=== PATIENT | male | born 1950 | race Caucasian/White ===

== ENCOUNTER 2019-04-18 16:57 | Emergency (ER) | payer MEDICARE ==
[~2019-04-18] VITALS: Ht 180.3 cm; Wt 88.9 kg
[2019-04-18 20:53] LABS: BASOPHILS % (AUTO) 0.1 % (0-1); EOSINOPHILS # (AUTO) 0.1 X10'3 (0-0.9); EOSINOPHILS % (AUTO) 2.1 % (0-6); HEMATOCRIT 47.1 % (42.0-52.0); HEMOGLOBIN 16.3 g/dl (14.0-17.9); LYMPHOCYTES # (AUTO) 1.3 X10'3 (1.1-4.8); LYMPHOCYTES % (AUTO) 19.3 % (21-51); MEAN CORPUSCULAR HEMOGLOBIN 32.5 PG (27.0-31.0); MEAN CORPUSCULAR HGB CONC 34.6 g/dL (33.0-36.5); MEAN CORPUSCULAR VOLUME 93.8 FL (78-98); MEAN PLATELET VOLUME 7.9 FL (7.4-10.4); MONOCYTES # (AUTO) 0.5 X10'3 (0-0.9); MONOCYTES % (AUTO) 7.6 % (2-12); NEUTROPHILS # (AUTO) 4.7 X10'3 (1.8-7.7); NEUTROPHILS % (AUTO) 70.9 % (42-75); PLATELET COUNT 285 X10'3 (140-440); RED BLOOD COUNT 5.02 X10'6 (4.70-6.10); WHITE BLOOD COUNT 6.6 X10'3 (4.5-11.0)
[2019-04-18 21:02] LABS: ANION GAP 5 (8-16); CHLORIDE 102 MMOL/L (99-107); CREATININE 1.29 MG/DL (0.60-1.10); POTASSIUM 4.3 MMOL/L (3.5-5.1); SODIUM 137 MMOL/L (135-145); TOTAL CARBON DIOXIDE 29.8 MMOL/L (24-32); eGFR 55 ML/MIN
[2019-04-18 21:03] LABS: ALANINE AMINOTRANSFERASE 26 U/L (12-78); ALBUMIN 4.1 G/DL (3.4-5.0); ALKALINE PHOSPHATASE 77 IU/L (46-116); CALCIUM 9.2 MG/DL (8.5-10.1)
[2019-04-18 21:10] LABS: MAGNESIUM 2.3 MG/DL (1.5-2.4); TROPONIN I 0.07 NG/ML (0.0-0.05)
[2019-04-18 21:26] LABS: ASPARTATE AMINO TRANSFERASE 26 U/L (10-37)
[2019-04-18] MEDS ORDERED: AMOX-422 PO (21:31)
[2019-04-18 21:38] LABS: BILIRUBIN,TOTAL 0.8 MG/DL (0.1-1.0); BLOOD UREA NITROGEN 25 MG/DL (7-18); BUN/CREATININE RATIO 19.4 (5.4-32.0); GLUCOSE 86 MG/DL (70-104); PHOSPHORUS 3.3 MG/DL (2.3-4.5); TOTAL PROTEIN 8.4 G/DL (6.4-8.2)
--- NOTE | 2019-04-18 21:49 | NUR ---
EKG AT BEDSIDE
[2019-04-18 22:06] VITALS: BP 137/83
== END 2019-04-18 22:08 | disposition home or self-care (01) ==
LOC: ER 17:00
DX: J32.9 Chronic sinusitis, unspecified (principal); Z86.73 Personal history of transient ischemic attack (TIA), and cerebral infarction without residual deficits; Z79.2 Long term (current) use of antibiotics
CPT/HCPCS: 36415; 80053; 83735; 84100; 84443; 84484; 85025; 93005; 99284

== ENCOUNTER 2019-08-01 10:30 | Day surgery (SDC) | payer MEDICARE ==
[2019-08-01] VITALS (8 sets, daily range): BP systolic 91–120; BP diastolic 57–74
[~2019-08-01] VITALS: Ht 180.3 cm; Wt 90.6 kg
[2019-08-01] MEDS ORDERED: normal saline 1000ml 1,000 ML IV SCH ×2 (11:05→15:15)
[2019-08-01] MEDS ORDERED: LISI-604 PO (11:15)
[2019-08-01] MEDS ORDERED: AMIO200T27 PO (11:15)
[2019-08-01] MEDS ORDERED: IBUP-2697 PO (11:15)
[2019-08-01] MEDS ORDERED: APIX5TAB3 PO (11:15)
[2019-08-01] MEDS ORDERED: METO25TA6 PO (11:15)
[2019-08-01 11:51] LABS: BASOPHILS % (AUTO) 0.3 % (0-1); EOSINOPHILS # (AUTO) 0.1 X10'3 (0-0.9); EOSINOPHILS % (AUTO) 1.5 % (0-6); HEMATOCRIT 41.1 % (42.0-52.0); HEMOGLOBIN 13.9 g/dl (14.0-17.9); LYMPHOCYTES # (AUTO) 0.8 X10'3 (1.1-4.8); LYMPHOCYTES % (AUTO) 17.2 % (21-51); MEAN CORPUSCULAR HEMOGLOBIN 32.3 PG (27.0-31.0); MEAN CORPUSCULAR VOLUME 95.2 FL (78-98); MEAN PLATELET VOLUME 8.5 FL (7.4-10.4); MONOCYTES # (AUTO) 0.4 X10'3 (0-0.9); MONOCYTES % (AUTO) 7.8 % (2-12); NEUTROPHILS # (AUTO) 3.5 X10'3 (1.8-7.7); NEUTROPHILS % (AUTO) 73.2 % (42-75); PLATELET COUNT 227 X10'3 (140-440); RED BLOOD COUNT 4.32 X10'6 (4.70-6.10); RED CELL DISTRIBUTION WIDTH 14.7 % (11.5-14.5); WHITE BLOOD COUNT 4.8 X10'3 (4.5-11.0)
[2019-08-01 12:00] LABS: ALBUMIN 3.4 G/DL (3.4-5.0); ANION GAP 5 (8-16); BLOOD UREA NITROGEN 28 MG/DL (7-18); BUN/CREATININE RATIO 17.5 (5.4-32.0); CALCIUM 8.9 MG/DL (8.5-10.1); CHLORIDE 107 MMOL/L (99-107); MAGNESIUM 2.1 MG/DL (1.5-2.4); POTASSIUM 4.2 MMOL/L (3.5-5.1); SODIUM 138 MMOL/L (135-145); TOTAL CARBON DIOXIDE 25.9 MMOL/L (24-32); eGFR 43 ML/MIN
[2019-08-01 12:01] LABS: GLUCOSE 89 MG/DL (70-104)
[2019-08-01] MEDS ORDERED: midazolam 2 mg/2 ml injection ONE ×4 (12:01→14:31)
[2019-08-01] MEDS ORDERED: ceFAZolin 1000mg inj ONE (12:01)
[2019-08-01] MEDS ORDERED: proCHLORperazine 10 MG/2 ml inj ONE (12:01)
[2019-08-01] MEDS ORDERED: fentaNYL/PF 50MCG/1 ML 2ML syringe ONE ×4 (12:02→14:31)
[2019-08-01] MEDS ORDERED: vancomycin 1,000mg inj ONE (12:03)
[2019-08-01] MEDS ORDERED: LIDOcaine 1% W/epiNEPHrine 1:100,000 20ml vial ONE (12:04)
[2019-08-01] MEDS ORDERED: iohexol 350MG/ML 100ml bottle IV ONE (12:32)
[2019-08-01] MEDS ORDERED: iohexol 350 MG/ML 50ML vial IV ONE (12:43)
[2019-08-01] MEDS ORDERED: LIDOcaine 2% 10ml TOPICAL JELLY (Urojet) ONE (12:56)
[2019-08-01] MEDS ORDERED: Thrombin (Bovine) 5,000 unit vial TP ONE (14:25)
[2019-08-01] MEDS ORDERED: proCHLORperazine 10 MG/2 ml inj IV PRN (18:00)
[2019-08-01] MEDS ORDERED: ondansetron/PF 4mg/2ml inj IV PRN (18:00)
== END 2019-08-01 18:10 | disposition home or self-care (01) ==
LOC: MED 3N 10:30 → U 10:30
PROVIDERS: ATTEND Internal Medicine Cardiovascular Disease
DX: I47.2 Ventricular tachycardia (principal); I49.5 Sick sinus syndrome; K21.9 Gastro-esophageal reflux disease without esophagitis; I42.9 Cardiomyopathy, unspecified; Z98.890 Other specified postprocedural states; Z72.89 Other problems related to lifestyle; Z79.899 Other long term (current) drug therapy
CPT/HCPCS: 33225; 33233; 33235; 33249; 36415; 71045; 80048; 83735; 85025; 85610; 93005; 99152; 99153; C1769; C1882; C1887; C1894; C1895; C1900; J0690; J0780; J2250; J2405; J3010; J3370; J7030; Q9967; A4565; A4620; A6258

== ENCOUNTER 2020-10-24 14:50 | Day surgery (SDC) | payer MEDICARE ==
[~2020-10-24] VITALS: Ht 180.3 cm; Wt 89.1 kg
[2020-10-24] VITALS (9 sets, daily range): BP systolic 125–142; BP diastolic 74–90
[~2020-10-24 14:50] MED LIST: AMIO200T27 PO; APIX5TAB3 PO; IBUP-2697 PO; LISI-790 PO; LOP25T PO
[2020-10-24] MEDS ORDERED: diphenhydrAMINE 25mg capsule PO PRN (15:15)
[2020-10-24] MEDS ORDERED: normal saline 1,000 ML IV SCH (15:15)
[2020-10-24] MEDS ORDERED: LOP25T PO (15:22)
[2020-10-24 15:46] LABS: BASOPHILS % (AUTO) 0.3 % (0-1); EOSINOPHILS # (AUTO) 0.2 X10'3 (0-0.9); HEMATOCRIT 41.9 % (42.0-52.0); HEMOGLOBIN 14.5 g/dl (14.0-17.9); LYMPHOCYTES # (AUTO) 1.3 X10'3 (1.1-4.8); LYMPHOCYTES % (AUTO) 26.4 % (21-51); MEAN CORPUSCULAR HEMOGLOBIN 32.4 PG (27.0-31.0); MEAN CORPUSCULAR HGB CONC 34.8 g/dL (33.0-36.5); MEAN CORPUSCULAR VOLUME 93.1 FL (78-98); MEAN PLATELET VOLUME 7.8 FL (7.4-10.4); MONOCYTES # (AUTO) 0.4 X10'3 (0-0.9); MONOCYTES % (AUTO) 7.4 % (2-12); NEUTROPHILS # (AUTO) 3.2 X10'3 (1.8-7.7); NEUTROPHILS % (AUTO) 61.9 % (42-75); PLATELET COUNT 200 X10'3 (140-440); RED CELL DISTRIBUTION WIDTH 13.9 % (11.5-14.5); WHITE BLOOD COUNT 5.1 X10'3 (4.5-11.0)
[2020-10-24 15:58] LABS: ALBUMIN 3.6 G/DL (3.4-5.0); ANION GAP 8 (8-16); BLOOD UREA NITROGEN 31 MG/DL (7-18); BUN/CREATININE RATIO 24.2 (5.4-32.0); CALCIUM 8.6 MG/DL (8.5-10.1); CHLORIDE 106 MMOL/L (99-107); CREATININE 1.28 MG/DL (0.60-1.10); GLUCOSE 95 MG/DL (70-104); POTASSIUM 4.1 MMOL/L (3.5-5.1); SODIUM 140 MMOL/L (135-145); TOTAL CARBON DIOXIDE 25.6 MMOL/L (24-32); eGFR 56 ML/MIN
[2020-10-24] MEDS ORDERED: LIDOcaine 1% (10mg/ml)w/preservative injection 20ml MDV ONE (16:13)
[2020-10-24] MEDS ORDERED: fentaNYL/PF 50MCG/1 ML 2ML syringe ONE (16:13)
[2020-10-24] MEDS ORDERED: iohexol 350 MG/ML 50ML vial IV ONE (16:13)
[2020-10-24] MEDS ORDERED: iohexol 350MG/ML 100ml bottle IV ONE (16:13)
[2020-10-24] MEDS ORDERED: heparin 1,000unit/ml 10ml vial 10 ML ONE (16:13)
[2020-10-24] MEDS ORDERED: midazolam 1 mg/ML 2ml injection ONE ×3 (16:13→17:11)
[2020-10-24] MEDS ORDERED: proCHLORperazine 10 MG/2 ml inj IV PRN (18:15)
[2020-10-24] MEDS ORDERED: normal saline 1000ml 1,000 ML IV SCH (18:15)
[2020-10-24] MEDS ORDERED: HYDROcodone/acetaminophen 5mg/325mg tablet PO PRN (18:15)
[2020-10-24] MEDS ORDERED: acetaminophen 325mg tablet PO PRN (18:15)
[2020-10-24] MEDS ORDERED: ondansetron/PF 4mg/2ml inj IV PRN (18:15)
[2020-10-24] MEDS ORDERED: HYDROcodone/acetaminophen 10/325mg tab PO PRN (18:15)
== END 2020-10-24 19:55 | disposition home or self-care (01) ==
LOC: SSTAY O 14:50
PROVIDERS: ATTEND Internal Medicine Cardiovascular Disease
DX: I47.2 Ventricular tachycardia (principal); I42.9 Cardiomyopathy, unspecified; I49.01 Ventricular fibrillation; K21.9 Gastro-esophageal reflux disease without esophagitis; Z79.899 Other long term (current) drug therapy; Z79.01 Long term (current) use of anticoagulants; Z95.0 Presence of cardiac pacemaker; Z98.890 Other specified postprocedural states; Z72.89 Other problems related to lifestyle; Z82.49 Family history of ischemic heart disease and other diseases of the circulatory system; Z81.8 Family history of other mental and behavioral disorders
CPT/HCPCS: 36415; 80048; 83735; 85025; 85610; 93005; 93458; 99152; C1760; C1769; C1894; J1644; J2001; J2250; J3010; J7030; Q0163; Q9967; 99153; A4620; A6258

== ENCOUNTER 2021-10-31 12:14 | Emergency (ER) | payer MEDICARE ==
[~2021-10-31] VITALS: Ht 180.3 cm; Wt 88.6 kg
[~2021-10-31 12:14] MED LIST changes: -AMIO200T27 PO; -APIX5TAB3 PO; -IBUP-2697 PO; -LISI-790 PO
[2021-10-31] MEDS ORDERED: adenosine 3mg/ml 2ml vial IV ONE (12:25)
[2021-10-31] MEDS ORDERED: aspirin 81mg tab.chew PO ONE (12:25)
[2021-10-31 12:47] LABS: BASOPHILS % (AUTO) 0.2 % (0-1); EOSINOPHILS # (AUTO) 0.2 X10'3 (0-0.9); HEMATOCRIT 44.7 % (42.0-52.0); HEMOGLOBIN 15.5 g/dl (14.0-17.9); LYMPHOCYTES # (AUTO) 1.5 X10'3 (1.1-4.8); MEAN CORPUSCULAR HEMOGLOBIN 32.9 PG (27.0-31.0); MEAN CORPUSCULAR HGB CONC 34.8 g/dL (33.0-36.5); MEAN CORPUSCULAR VOLUME 94.5 FL (78-98); MEAN PLATELET VOLUME 8.5 FL (7.4-10.4); MONOCYTES # (AUTO) 0.5 X10'3 (0-0.9); NEUTROPHILS # (AUTO) 4.5 X10'3 (1.8-7.7); NEUTROPHILS % (AUTO) 66.8 % (42-75); PLATELET COUNT 249 X10'3 (140-440); RED BLOOD COUNT 4.73 X10'6 (4.70-6.10); RED CELL DISTRIBUTION WIDTH 13.8 % (11.5-14.5); WHITE BLOOD COUNT 6.7 X10'3 (4.5-11.0)
[2021-10-31 13:07] LABS: ALANINE AMINOTRANSFERASE 27 U/L (12-78); ALKALINE PHOSPHATASE 68 IU/L (46-116); ANION GAP 7 (8-16); BLOOD UREA NITROGEN 44 MG/DL (7-18); BUN/CREATININE RATIO 30.3 (5.4-32.0); CALCIUM 8.6 MG/DL (8.5-10.1); CHLORIDE 103 MMOL/L (99-107); CREATININE 1.45 MG/DL (0.60-1.10); MAGNESIUM 2.2 MG/DL (1.5-2.4); POTASSIUM 4.6 MMOL/L (3.5-5.1); SODIUM 137 MMOL/L (135-145); TOTAL CARBON DIOXIDE 27.4 MMOL/L (24-32); eGFR 48 ML/MIN
[2021-10-31 13:15] LABS: ASPARTATE AMINO TRANSFERASE 21 U/L (10-37)
[2021-10-31 13:18] LABS: BILIRUBIN,TOTAL 0.7 MG/DL (0.1-1.0); GLUCOSE 112 MG/DL (70-104); TOTAL PROTEIN 8.2 G/DL (6.4-8.2)
[2021-10-31] MEDS ORDERED: amiodarone 200mg tablet PO ONE (14:15)
[2021-10-31] MEDS ORDERED: amiodarone 150mg/dext, iso-os 100 ML IV ONE (14:15)
--- NOTE | 2021-10-31 14:46 | NUR ---
Pt connected saranya site monitor for fcurther observation, pt awaiting to have pacemaker tested.
--- NOTE | 2021-10-31 15:29 | NUR ---
Pt started on amioderone drip, [employer] personnel at bedside.
[2021-10-31] MEDS ORDERED: AMIO200T27 PO (15:48)
--- NOTE | 2021-10-31 15:48 | NUR ---
Dr Henning made aware of pt's elevated troponin.
--- NOTE | 2021-10-31 16:31 | NUR ---
Pt d/c home via ambulatory in good condition, instructions given, pt verbalized understanding.
[2021-10-31 16:34] VITALS: BP 102/63
== END 2021-10-31 16:35 | disposition home or self-care (01) ==
LOC: ER 12:15
DX: I47.2 Ventricular tachycardia (principal)
CPT/HCPCS: 36415; 71045; 80053; 83735; 83880; 84484; 85025; 93005; 96374; 99285; J0282

== ENCOUNTER 2021-11-05 18:53 | Inpatient (IN) | payer MEDICARE ==
[~2021-11-05] VITALS: Ht 180.3 cm; Wt 92.6 kg
[~2021-11-05 18:53] MED LIST changes: +AMIO200T27 PO
[2021-11-05 19:40] LABS: BASOPHILS # (AUTO) 0.1 X10'3 (0-0.2); BASOPHILS % (AUTO) 0.9 % (0-1); EOSINOPHILS # (AUTO) 0.1 X10'3 (0-0.9); EOSINOPHILS % (AUTO) 1.2 % (0-6); HEMATOCRIT 42.2 % (42.0-52.0); HEMOGLOBIN 14.6 g/dl (14.0-17.9); LYMPHOCYTES # (AUTO) 0.5 X10'3 (1.1-4.8); LYMPHOCYTES % (AUTO) 5.7 % (21-51); MEAN CORPUSCULAR HEMOGLOBIN 32.7 PG (27.0-31.0); MEAN CORPUSCULAR HGB CONC 34.6 g/dL (33.0-36.5); MEAN CORPUSCULAR VOLUME 94.7 FL (78-98); MONOCYTES # (AUTO) 0.5 X10'3 (0-0.9); NEUTROPHILS # (AUTO) 7.3 X10'3 (1.8-7.7); NEUTROPHILS % (AUTO) 86.2 % (42-75); PLATELET COUNT 212 X10'3 (140-440); RED BLOOD COUNT 4.46 X10'6 (4.70-6.10); RED CELL DISTRIBUTION WIDTH 13.9 % (11.5-14.5); WHITE BLOOD COUNT 8.4 X10'3 (4.5-11.0)
[2021-11-05 19:53] LABS: ALANINE AMINOTRANSFERASE 249 U/L (12-78); ALBUMIN 3.8 G/DL (3.4-5.0); ALKALINE PHOSPHATASE 126 IU/L (46-116); ANION GAP 7 (8-16); BLOOD UREA NITROGEN 35 MG/DL (7-18); BUN/CREATININE RATIO 20.3 (5.4-32.0); CHLORIDE 100 MMOL/L (99-107); CREATININE 1.72 MG/DL (0.60-1.10); POTASSIUM 4.2 MMOL/L (3.5-5.1); SODIUM 135 MMOL/L (135-145); TOTAL CARBON DIOXIDE 28.4 MMOL/L (24-32); eGFR 39 ML/MIN
[2021-11-05 20:01] LABS: ASPARTATE AMINO TRANSFERASE 154 U/L (10-37); BILIRUBIN,TOTAL 5.4 MG/DL (0.1-1.0); CALCIUM 8.8 MG/DL (8.5-10.1); GLUCOSE 121 MG/DL (70-104); LIPASE 1056 U/L (73-393); TOTAL PROTEIN 7.6 G/DL (6.4-8.2)
[2021-11-05 22:34] LABS: CLARITY,URINE CLEAR (Clear); GLUCOSE, URINE NEGATIVE (Neg); KETONES,URINE 15 mg/dl (Neg); LEUKOCYTE ESTERASE ,URINE NEGATIVE (Neg); OCCULT BLOOD,URINE NEGATIVE (Neg); PH,URINE 5.5 (4.8-8.0); PROTEIN,URINE 30 mg/dl (Neg)
[2021-11-05 22:43] LABS: COLOR,URINE DARK YELLOW (Yellow)
[2021-11-05 22:44] LABS: NITRITES, URINE NEGATIVE (Neg); UA COLLECTION TYPE CLN CATCH MIDSTREAM
[2021-11-05 22:48] LABS: RBC,URINE 0-2 /HPF (0-2); WBC,URINE NONE SEEN /HPF (0-4)
[2021-11-05 22:49] LABS: BACTERIA,URINE FEW /HPF (Neg); HYALINE CASTS 0-3 /LPF (NEGATIVE); MUCUS STRANDS MODERATE /LPF (Neg); SQUAMOUS EPITHELIAL CELL,UR MODERATE /LPF (FEW)
[2021-11-05] MEDS ORDERED: CefTRIAXone 2gm/D5W 50ml BAG 50 ML IV ONE (23:55)
[2021-11-06] MEDS ORDERED: CARV25TA PO (00:12)
[2021-11-06] MEDS ORDERED: ASPI-107 PO (00:12)
[2021-11-06] MEDS ORDERED: ondansetron/PF 4mg/2ml inj IV ONE (00:20)
[2021-11-06] MEDS ORDERED: morphine 4 MG/ML inj SYRINge IV ONE (00:20)
[2021-11-06] MEDS ORDERED: magnesium 2GM in 50ml NS 50 ML IV PRN (00:30)
[2021-11-06] MEDS ORDERED: acetaminophen 325mg tablet PO PRN (00:30)
[2021-11-06] MEDS ORDERED: magnesium 4gm in 100ml NS 100 ML IV PRN (00:30)
[2021-11-06] MEDS ORDERED: POTASSIUM BICARB 20meq eff tab 20 MEQ TABLET.EFF PO PRN ×2 (00:30)
[2021-11-06] MEDS ORDERED: HYDROmorphone/PF 0.2 MG/ML SYRINGE IV PRN (00:30)
[2021-11-06] MEDS ORDERED: magnesium Cl slow-release 64mg tablet PO PRN (00:30)
[2021-11-06] MEDS ORDERED: magnesium hydroxide 30ml (MOM) UD suspension PO PRN (00:30)
[2021-11-06] MEDS ORDERED: potassium CL 10mEq/100ml bag 100 ML IV PRN (00:30)
[2021-11-06] MEDS ORDERED: HYDROmorphone inj. 0.5 MG/0.5 ML DISP.SYRIN IV PRN ×2 (00:30→00:40)
[2021-11-06] MEDS: dextrose 5%-1/2 normal saline 1,000 ML IV SCH ×3 (00:47→17:29)
[2021-11-06 04:03] LABS: MAGNESIUM 2.5 MG/DL (1.5-2.4); POTASSIUM 4.5 MMOL/L (3.5-5.1)
--- NOTE | 2021-11-06 06:55 | NUR ---
pt sleeping quietly no acute distress noted at this time
[2021-11-06] MEDS ORDERED: carVEDilol 12.5mg tablet PO SCH (08:00)
[2021-11-06] MEDS: K and/or MAG REPLACEMENT MC SCH ×2 (08:00→20:00)
[2021-11-06] MEDS ORDERED: NORMAL SALINE IV ONE ×2 (08:20→13:00)
[2021-11-06] MEDS ORDERED: SINCALIDE IV ONE ×2 (08:20→13:00)
[2021-11-06] MEDS: amiodarone 200mg tablet PO SCH ×2 (08:23→20:48)
[2021-11-06] MEDS: aspirin 81mg, enteric-coated 1 TAB TABLET.DR PO SCH (08:23)
[2021-11-06] MEDS: docusate sod 100mg capsule PO SCH ×2 (08:23→20:48)
[2021-11-06] MEDS: enoxaparin 40mg/0.4ml syringe SUBCUT SCH (08:24)
--- NOTE | 2021-11-06 10:22 | NUR ---
anthony [phone] pt sleeping says she will be back.
[2021-11-06] MEDS: ondansetron/PF 4mg/2ml inj IV PRN ×2 (11:00→21:36)
--- NOTE | 2021-11-06 11:40 | NUR ---
pt to nuclear med in stable condition
--- NOTE | 2021-11-06 14:00 | NUR ---
back from [facility] in stable condition
[2021-11-06] MEDS ORDERED: CARV-50 PO (14:21)
--- NOTE | 2021-11-06 16:30 | NUR ---
DR. JANE CALLED. PT WILL BE NPO AFTER MN. GOING TO SURGERY TOMORROW AND DR. MALCOLM WILL PERFORM.
[2021-11-06 18:07] LABS: ALANINE AMINOTRANSFERASE 149 U/L (12-78); ALBUMIN/GLOBULIN RATIO 0.8 (1.1-1.5); ALKALINE PHOSPHATASE 114 IU/L (46-116); ANION GAP 9 (8-16); ASPARTATE AMINO TRANSFERASE 60 U/L (10-37); BLOOD UREA NITROGEN 25 MG/DL (7-18); BUN/CREATININE RATIO 16.1 (5.4-32.0); CALCIUM 7.7 MG/DL (8.5-10.1); CHLORIDE 105 MMOL/L (99-107); CREATININE 1.55 MG/DL (0.60-1.10); POTASSIUM 4.2 MMOL/L (3.5-5.1); SODIUM 140 MMOL/L (135-145); TOTAL CARBON DIOXIDE 26.2 MMOL/L (24-32); TOTAL PROTEIN 6.8 G/DL (6.4-8.2); eGFR 44 ML/MIN
[2021-11-06 18:16] LABS: GLUCOSE 127 MG/DL (70-104)
--- NOTE | 2021-11-06 20:30 | NUR ---
Received report from Krys WHITMAN from ED. Patient came up to the floor via gurney. Patient placed in bed, locked & low. Call light placed within reach.
[2021-11-06 20:45] VITALS: BP 138/66
[2021-11-06] MEDS: carVEDilol 12.5mg tablet PO SCH (20:48)
[2021-11-06] MEDS: morphine 4 MG/ML inj SYRINge IV PRN (21:31)
[2021-11-06 22:00] VITALS: BP 108/54
[2021-11-07] MEDS: dextrose 5%-1/2 normal saline 1,000 ML IV SCH ×2 (02:53→12:53)
[2021-11-07] MEDS: morphine 4 MG/ML inj SYRINge IV PRN ×3 (05:50→20:31)
[2021-11-07 06:00] VITALS: BP 108/56
[2021-11-07 06:03] LABS: APTT 30 SECONDS (22-32)
[2021-11-07 06:07] LABS: BASOPHILS % (AUTO) 0.2 % (0-1); EOSINOPHILS # (AUTO) 0.1 X10'3 (0-0.9); EOSINOPHILS % (AUTO) 2.6 % (0-6); HEMATOCRIT 40.9 % (42.0-52.0); HEMOGLOBIN 14.2 g/dl (14.0-17.9); LYMPHOCYTES # (AUTO) 0.7 X10'3 (1.1-4.8); LYMPHOCYTES % (AUTO) 11.6 % (21-51); MEAN CORPUSCULAR HGB CONC 34.7 g/dL (33.0-36.5); MEAN CORPUSCULAR VOLUME 95.1 FL (78-98); MEAN PLATELET VOLUME 8.6 FL (7.4-10.4); MONOCYTES # (AUTO) 0.3 X10'3 (0-0.9); MONOCYTES % (AUTO) 5.9 % (2-12); NEUTROPHILS # (AUTO) 4.5 X10'3 (1.8-7.7); NEUTROPHILS % (AUTO) 79.7 % (42-75); PLATELET COUNT 169 X10'3 (140-440); RED CELL DISTRIBUTION WIDTH 14.4 % (11.5-14.5); WHITE BLOOD COUNT 5.6 X10'3 (4.5-11.0)
[2021-11-07 06:15] LABS: ALANINE AMINOTRANSFERASE 123 U/L (12-78); ALBUMIN 3.2 G/DL (3.4-5.0); ALBUMIN/GLOBULIN RATIO 0.7 (1.1-1.5); ALKALINE PHOSPHATASE 124 IU/L (46-116); ANION GAP 9 (8-16); ASPARTATE AMINO TRANSFERASE 43 U/L (10-37); BLOOD UREA NITROGEN 22 MG/DL (7-18); BUN/CREATININE RATIO 15.3 (5.4-32.0); CALCIUM 8.5 MG/DL (8.5-10.1); CHLORIDE 103 MMOL/L (99-107); CREATININE 1.44 MG/DL (0.60-1.10); GLUCOSE 107 MG/DL (70-104); POTASSIUM 3.7 MMOL/L (3.5-5.1); SODIUM 135 MMOL/L (135-145); TOTAL CARBON DIOXIDE 22.6 MMOL/L (24-32); TOTAL PROTEIN 7.6 G/DL (6.4-8.2); eGFR 48 ML/MIN
--- NOTE | 2021-11-07 06:37 | NUR ---
Problems reprioritized. Patient report given, questions answered & plan of care reviewed with Nay WHITMAN.
--- NOTE | 2021-11-07 06:39 | NUR ---
Patient in room ORTHO 4015. I have received report from sarai Iverson and had the opportunity to ask questions and assume patient care.
[2021-11-07] MEDS: enoxaparin 40mg/0.4ml syringe SUBCUT SCH (07:35)
[2021-11-07] MEDS: aspirin 81mg, enteric-coated 1 TAB TABLET.DR PO SCH (07:36)
[2021-11-07] MEDS: carVEDilol 12.5mg tablet PO SCH ×2 (07:41→20:40)
[2021-11-07] MEDS: docusate sod 100mg capsule PO SCH ×2 (07:41→20:39)
[2021-11-07] MEDS: amiodarone 200mg tablet PO SCH ×2 (07:41→20:39)
[2021-11-07] MEDS: K and/or MAG REPLACEMENT MC SCH ×2 (08:00→20:00)
[2021-11-07 10:00] VITALS: BP 124/58
[2021-11-07] MEDS: piperacillin/tazo 4.5gm/100ml 100 ML IV SCH ×2 (11:53→16:22)
[2021-11-07 18:00] VITALS: BP 136/73
--- NOTE | 2021-11-07 18:56 | NUR ---
Problems reprioritized. Patient report given, questions answered & plan of care reviewed with Dina RN.
[2021-11-07 22:00] VITALS: BP 135/67
[2021-11-08] VITALS (18 sets, daily range): BP systolic 98–142; BP diastolic 47–75
[2021-11-08] MEDS: piperacillin/tazo 4.5gm/100ml 100 ML IV SCH ×3 (00:14→17:00)
[2021-11-08] MEDS: dextrose 5%-1/2 normal saline 1,000 ML IV SCH ×2 (00:19→11:58)
[2021-11-08] MEDS: morphine 4 MG/ML inj SYRINge IV PRN ×4 (01:38→16:52)
[2021-11-08] MEDS: K and/or MAG REPLACEMENT MC SCH ×2 (07:38→20:00)
[2021-11-08] MEDS: aspirin 81mg, enteric-coated 1 TAB TABLET.DR PO SCH (07:38)
[2021-11-08] MEDS: carVEDilol 12.5mg tablet PO SCH ×2 (07:38→20:12)
[2021-11-08] MEDS: amiodarone 200mg tablet PO SCH ×2 (07:38→20:11)
[2021-11-08] MEDS: docusate sod 100mg capsule PO SCH ×2 (07:38→20:12)
[2021-11-08] MEDS: enoxaparin 40mg/0.4ml syringe SUBCUT SCH (07:38)
[2021-11-08] MEDS: ondansetron/PF 4mg/2ml inj IV PRN (07:47)
[2021-11-08 07:55] LABS: BASOPHILS % (AUTO) 0.1 % (0-1); EOSINOPHILS # (AUTO) 0.1 X10'3 (0-0.9); HEMATOCRIT 36.3 % (42.0-52.0); HEMOGLOBIN 12.6 g/dl (14.0-17.9); LYMPHOCYTES # (AUTO) 0.4 X10'3 (1.1-4.8); LYMPHOCYTES % (AUTO) 5.1 % (21-51); MEAN CORPUSCULAR HEMOGLOBIN 32.6 PG (27.0-31.0); MEAN CORPUSCULAR HGB CONC 34.6 g/dL (33.0-36.5); MEAN CORPUSCULAR VOLUME 94.3 FL (78-98); MEAN PLATELET VOLUME 8.5 FL (7.4-10.4); MONOCYTES # (AUTO) 0.6 X10'3 (0-0.9); MONOCYTES % (AUTO) 7.2 % (2-12); NEUTROPHILS # (AUTO) 7.4 X10'3 (1.8-7.7); NEUTROPHILS % (AUTO) 86.6 % (42-75); PLATELET COUNT 164 X10'3 (140-440); RED BLOOD COUNT 3.85 X10'6 (4.70-6.10); RED CELL DISTRIBUTION WIDTH 13.9 % (11.5-14.5); WHITE BLOOD COUNT 8.5 X10'3 (4.5-11.0)
[2021-11-08 08:17] LABS: ALANINE AMINOTRANSFERASE 67 U/L (12-78); ALBUMIN 2.7 G/DL (3.4-5.0); ALBUMIN/GLOBULIN RATIO 0.7 (1.1-1.5); ALKALINE PHOSPHATASE 115 IU/L (46-116); ANION GAP 8 (8-16); ASPARTATE AMINO TRANSFERASE 20 U/L (10-37); BILIRUBIN,TOTAL 1.8 MG/DL (0.1-1.0); BLOOD UREA NITROGEN 18 MG/DL (7-18); BUN/CREATININE RATIO 12.6 (5.4-32.0); CALCIUM 8.2 MG/DL (8.5-10.1); CHLORIDE 102 MMOL/L (99-107); CREATININE 1.43 MG/DL (0.60-1.10); GLUCOSE 116 MG/DL (70-104); SODIUM 136 MMOL/L (135-145); TOTAL CARBON DIOXIDE 25.8 MMOL/L (24-32); TOTAL PROTEIN 6.8 G/DL (6.4-8.2); eGFR 49 ML/MIN
--- NOTE | 2021-11-08 10:53 | NUR ---
Telephone call from hospitalist said to hold enema until after surgery.
--- NOTE | 2021-11-08 12:52 | NUR ---
Received message from OR charge to give IC green to patient prior to pickle processor for OR at 1300. Order was not placed and IC green was not up to the floor. T/C to nail specialist of OR to get order clarified, could not clarify the order for me and was told to call MD for order. T/C to Dr. Putnam who said give IC green at standard dose, call pharmacy to put order in. Order placed per pharmacist recommendations, still waiting for IC green to arrive to floor.
[2021-11-08] MEDS ORDERED: INDOCYANINE GREEN 25 MG/10 ML VIAL IV ONE ×2 (12:55)
[2021-11-08] MEDS ORDERED: BUPIVAcaine/PF 2.5 mg/ml (0.25%) 30ml vial ONE (13:03)
--- NOTE | 2021-11-08 13:24 | NUR ---
patient picked up for OR. escorted with him.
[2021-11-08] MEDS ORDERED: ringers solution, lacted 1,000 ML IV SCH (13:40)
[2021-11-08] MEDS ORDERED: meperidine/PF 25mg/ml syringe IV PRN ×3 (13:40)
[2021-11-08] MEDS ORDERED: morphine 4 MG/ML inj SYRINge IV PRN (13:40)
[2021-11-08] MEDS ORDERED: ondansetron/PF 4mg/2ml inj IV PRN ×2 (13:40→15:30)
[2021-11-08] MEDS ORDERED: morphine 2 MG/ML inj. syringe IV PRN (13:40)
[2021-11-08] MEDS ORDERED: proCHLORperazine 10 MG/2 ml inj IV PRN (13:40)
[2021-11-08] MEDS ORDERED: rocuronium 10mg/ml inj IV ONE ×2 (13:42→13:45)
[2021-11-08] MEDS ORDERED: sevoflurane 250ml liquid IH ONE (13:42)
[2021-11-08] MEDS ORDERED: dexamethasone sod phosphate 10mg/ml inj ONE (13:42)
[2021-11-08] MEDS ORDERED: midazolam 1 mg/ML 2ml injection ONE (13:44)
[2021-11-08] MEDS ORDERED: propofol inj 20 ML IV ONE (13:45)
[2021-11-08] MEDS ORDERED: fentaNYL /PF 50mcg/ml 5ml ampule ONE (13:45)
[2021-11-08] MEDS ORDERED: ondansetron/PF 4mg/2ml inj ONE (15:03)
[2021-11-08] MEDS ORDERED: sugammadex 200mg/2ml injection IV ONE ×2 (15:19→15:23)
[2021-11-08] MEDS ORDERED: naloxone 0.4 mg/ml inj IV PRN (15:30)
[2021-11-08] MEDS ORDERED: HYDROcodone/acetaminophen 10/325mg tab PO PRN (15:30)
--- NOTE | 2021-11-08 15:37 | NUR ---
Received from OR via SURGICAL BED WITH MEDEBRA , accompanied by Anesthesiologist GREYSON and report given by Anesthesiolgist. PATIENT WITH 20GPIV IN LEFT UE RUNNING LR AT 100. DENIES PAIN AT THIS TIME. 4 ABDOMINAL LAP SITES PRESNET. SCDS DONNED UPON ARRIVAL. WILL CONTINUE TO ASSESS. Addendum: 11/08/21 at 1547 by Edwin Hernandez RN, RN Amended: Links added.
[2021-11-08] MEDS ORDERED: ceFOXitin 1 GM/D5W 50mL IVPB 50 ML IV SCH (16:00)
--- NOTE | 2021-11-08 18:05 | NUR ---
PAGER ID: [phone] MESSAGE: [id number] Morris Chance: patient and back in room post op. is requesting to speak with you this evening. thanks!
[2021-11-08] MEDS ORDERED: HYDROmorphone inj. 0.5 MG/0.5 ML DISP.SYRIN IV PRN (18:10)
--- NOTE | 2021-11-08 18:23 | NUR ---
Problems reprioritized. Patient report given, questions answered & plan of care reviewed with J CARLOS Maldonado.
[2021-11-08] MEDS: HYDROmorphone 1 mg/ml syringe IV PRN (18:38)
[2021-11-09] MEDS: piperacillin/tazo 4.5gm/100ml 100 ML IV SCH ×2 (00:36→08:27)
[2021-11-09 01:57] VITALS: BP 145/67
[2021-11-09] MEDS: mag hydrox/Alum hydrox/simeth 30ml oral suspension PO PRN ×2 (03:30→10:47)
[2021-11-09] MEDS: dextrose 5%-1/2 normal saline 1,000 ML IV SCH ×2 (03:34→08:53)
[2021-11-09 05:00] VITALS: BP 128/63
[2021-11-09] MEDS: HYDROmorphone 1 mg/ml syringe IV PRN (06:06)
[2021-11-09 06:41] LABS: BASOPHILS % (AUTO) 0 % (0-1); EOSINOPHILS % (AUTO) 0 % (0-6); HEMATOCRIT 35.5 % (42.0-52.0); HEMOGLOBIN 12.1 g/dl (14.0-17.9); LYMPHOCYTES # (AUTO) 0.3 X10'3 (1.1-4.8); LYMPHOCYTES % (AUTO) 3.3 % (21-51); MEAN CORPUSCULAR HEMOGLOBIN 32.2 PG (27.0-31.0); MEAN CORPUSCULAR HGB CONC 34.1 g/dL (33.0-36.5); MEAN CORPUSCULAR VOLUME 94.4 FL (78-98); MEAN PLATELET VOLUME 8.7 FL (7.4-10.4); MONOCYTES # (AUTO) 0.2 X10'3 (0-0.9); MONOCYTES % (AUTO) 2.5 % (2-12); NEUTROPHILS # (AUTO) 7.9 X10'3 (1.8-7.7); NEUTROPHILS % (AUTO) 94.2 % (42-75); PLATELET COUNT 184 X10'3 (140-440); RED BLOOD COUNT 3.76 X10'6 (4.70-6.10); WHITE BLOOD COUNT 8.3 X10'3 (4.5-11.0)
--- NOTE | 2021-11-09 06:47 | NUR ---
Problems reprioritized. Patient report given, questions answered & plan of care reviewed with PRIYA WHITMAN.
--- NOTE | 2021-11-09 06:48 | NUR ---
Patient in room ORTHO 4015. I have received report from J CARLOS Maldonado and had the opportunity to ask questions and assume patient care.
[2021-11-09 07:13] LABS: ALANINE AMINOTRANSFERASE 61 U/L (12-78); ALBUMIN 2.4 G/DL (3.4-5.0); ALBUMIN/GLOBULIN RATIO 0.6 (1.1-1.5); ALKALINE PHOSPHATASE 106 IU/L (46-116); ANION GAP 11 (8-16); ASPARTATE AMINO TRANSFERASE 24 U/L (10-37); BILIRUBIN,TOTAL 1.5 MG/DL (0.1-1.0); BLOOD UREA NITROGEN 18 MG/DL (7-18); BUN/CREATININE RATIO 14.1 (5.4-32.0); CALCIUM 8.2 MG/DL (8.5-10.1); CHLORIDE 103 MMOL/L (99-107); CREATININE 1.28 MG/DL (0.60-1.10); POTASSIUM 3.7 MMOL/L (3.5-5.1); SODIUM 138 MMOL/L (135-145); TOTAL PROTEIN 6.7 G/DL (6.4-8.2); eGFR 55 ML/MIN
[2021-11-09 07:14] LABS: GLUCOSE 164 MG/DL (70-104)
[2021-11-09] MEDS: K and/or MAG REPLACEMENT MC SCH (08:00)
[2021-11-09] MEDS ORDERED: mineral oil 133ml enema RC ONE (08:00)
[2021-11-09] MEDS: amiodarone 200mg tablet PO SCH (08:27)
[2021-11-09] MEDS: aspirin 81mg, enteric-coated 1 TAB TABLET.DR PO SCH (08:27)
[2021-11-09] MEDS: docusate sod 100mg capsule PO SCH (08:27)
[2021-11-09] MEDS: carVEDilol 12.5mg tablet PO SCH (08:27)
[2021-11-09] MEDS: enoxaparin 40mg/0.4ml syringe SUBCUT SCH (08:28)
[2021-11-09 10:00] VITALS: BP 102/57
[2021-11-09] MEDS ORDERED: ONDA4TAB12 PO (12:00)
--- NOTE | 2021-11-09 14:07 | NUR ---
Patient was discharged at 1357 with instructions and verbalizing understanding of instructions, accompanied by and nursing staff, going home via private vehicle. All lines and tubes including PIV with cannula intact and tele monitor have been removed. Education about post op care has been provided and all questions have been answered. Patient was provided with Dr. Putnam's office phone number and was instructed to call Thursday for a follow up appointment. Patient is stable and appropriate for discharge.
--- NOTE | 2021-11-12 15:39 | NUR ---
Case Management DC follow up. Left VM with name, telephone number, and reason for call
== END 2021-11-09 13:57 | disposition home or self-care (01) | DRG 417 ==
LOC: ER 18:54 → ED HOLD 11-06 00:31 → ORTHO 4S 11-06 20:45
PROVIDERS: ADMIT Internal Medicine; ATTEND Family Medicine
PROC: CF1C1ZZ Planar Nuclear Medicine Imaging of Hepatobiliary System, All using Technetium 99m (Tc-99m) (ICD-10-PCS; 2021-11-06)
PROC: 8E0W4CZ Robotic Assisted Procedure of Trunk Region, Percutaneous Endoscopic Approach (ICD-10-PCS; 2021-11-08)
PROC: 0FT44ZZ Resection of Gallbladder, Percutaneous Endoscopic Approach (ICD-10-PCS; principal; 2021-11-08 13:42)
DX: K85.10 Biliary acute pancreatitis without necrosis or infection (principal); N17.0 Acute kidney failure with tubular necrosis; K62.5 Hemorrhage of anus and rectum; K56.7 Ileus, unspecified; K80.10 Calculus of gallbladder with chronic cholecystitis without obstruction; Z20.822 Contact with and (suspected) exposure to COVID-19; R74.01 Elevation of levels of liver transaminase levels; E86.0 Dehydration; E80.6 Other disorders of bilirubin metabolism; I10 Essential (primary) hypertension; R79.89 Other specified abnormal findings of blood chemistry; I25.10 Atherosclerotic heart disease of native coronary artery without angina pectoris; K82.8 Other specified diseases of gallbladder; Z86.73 Personal history of transient ischemic attack (TIA), and cerebral infarction without residual deficits; Z86.79 Personal history of other diseases of the circulatory system; Z95.810 Presence of automatic (implantable) cardiac defibrillator; Z79.899 Other long term (current) drug therapy; Z79.82 Long term (current) use of aspirin
CPT/HCPCS: 36415; 71045; 74018; 74176; 76700; 78227; 80053; 81001; 82948; 83690; 83735; 83880; 84132; 84484; 85025; 85610; 85730; 87081; 87811; 88304; 93005; 99285; A4215; A4615; A4618; A7000; A9537; G0378; J0696; J1100; J1170; J1650; J2250; J2270; J2405; J2543; J2704; J2805; J3010; J3490; J7030; J7042; J7120